=== PATIENT | female | born 1990 | race Caucasian/White ===

== ENCOUNTER 2024-09-14 02:43 | Emergency (ER) | payer MEDICAID ==
[~2024-09-14] VITALS: Ht 154.9 cm; Wt 65.9 kg
[~2024-09-14 02:43] MED LIST: ACE3T PO; IBUP-1454 PO; LACT10SO3 PO
[2024-09-14 02:57] VITALS: BP 115/72; PULSE 87; RESP 16; TEMP 98.4; O2SAT 99
--- NOTE | 2024-09-14 03:14 | ED.PDOC ---
General HPI Comments 34-year-old female came to ER due to pelvic pain. Patient states she was diagnosed with left ovarian cyst few months ago. Patient coming in complaining of left lower quadrant abdominal pain radiating to the back since yesterday, associated with nausea, dysuria, and constipation. Patient states she usually defecates once a week only Chief Complaint: Pelvic Pain Time Seen by MD: 03:11 Reviewed notes: Nurses Notes Allergies: Coded Allergies: NO KNOWN ALLERGIES (Unverified , 08/26/23) Home Meds Active Scripts Ibuprofen (Ibuprofen) 600 Mg Tab, 1 TAB PO Q6HP PRN, #30 TAB Prov:CATHIE HERNÁNDEZ PAC 08/26/23 Acetaminophen W/ Codeine (Tylenol W/Cod #3) 1 Tab Tb, 1 TAB PO Q6HP PRN, #15 TAB Prov:CATHIE HERNÁNDEZ PAC 08/26/23 Lactulose (Lactulose) 10 Gm/15 Ml Mayra, 10 GM PO Q6HP PRN, #150 ML Prov:CATHIE HERNÁNDEZ PAC 08/26/23 Information Source: Patient Mode of Arrival: Ambulatory Severity: Moderate Inability to void: Moderate Timing: Hours Duration: Since onset Prehospital treatment: None Onset: Spontaneous Symptoms: Dysuria History of: Other (Ovarian cyst) associated signs and symptoms: Abdominal Pain, Nausea, Dysuria Review of Systems REVIEW OF SYSTEMS: No fever, no chills, or fatigue HEENT: No sore throat, no earache, no congestion, no neck pain. Cardiac: No chest pain. No palpitations. Lungs: No shortness of breath, no cough. GI: No nausea, no vomiting, no diarrhea, no constipation, (+) LLQ abdominal pain : No dysuria, frequency, or urgency. No hematuria. Musculoskeletal: No joint pain , no joint swelling, no extremity edema. Skin: No rash, no itching. Neuro: No headache, no dizziness, no weakness Vital Signs Vital Signs Date Time Temp Pulse Resp B/P (MAP) Pulse Ox O2 Delivery O2 Flow Rate FiO2 09/14/24 02:57 98.4 87 16 115/72 (86) 99 98.4 Physical Exam General: Awake, alert and oriented. No acute distress. Skin: Skin in warm, dry and intact without rashes or lesions. HEENT: The head is normocephalic and atraumatic. Conjunctivae are clear without exudates or hemorrhage. Sclera is non-icteric. Neck: Normal range of motion. No JVD. Cardiac: Regular rate Respiratory: No signs of respiratory distress. No Stridor. Neurological: The patient is awake, alert and oriented to person, place, and time with normal speech. Speech is clear. There is no facial asymmetry. Psychiatric: Appropriate mood and affect. Good judgement and insight. Past Medical History PAST MEDICAL HISTORY: Denies Surgical History: Denies all surgeries [employer] History: Ovarian Cysts Family History Family History: Reviewed,noncontributory to illness, No family hx of Cancer, No family hx of DM, No family hx of Heart hazel, No family hx of HTN, No family hx ofKidney hazel, No family hx of Liver hazel, No family hx of Lung hazel, No family hx of Stroke Social History Smoker: Non-Smoker Alcohol: Denies ETOH Use Drugs: Denies Drug Use Lives In: Home Was a procedure done? Was a procedure done?: No Differential Diagnosis Kidney stone (Female): Musculoskeletal pain, Ovarian torsion, Pyelonephritis, Renal failure, Strain, Urinary obstruction, Urolithiasis, Other (Ovarian cyst) Urinary Problem (Female): Pyelonephritis, Urinary retention, Urolithiasis, UTI, Other (Constipation) X-Ray, Labs, Meds, VS Vital Signs Date Time Temp Pulse Resp B/P (MAP) Pulse Ox O2 Delivery O2 Flow Rate FiO2 09/14/24 02:57 98.4 87 16 115/72 (86) 99 98.4 Time of 1ST Reevaluation: 03:08 Reevaluation 1ST: Unchanged Patient Education/Counseling: Diagnosis, Treatment Family Education/Counseling: Need For Follow Up Departure 1 Departure Time of Disposition: 05:28 Impression: Primary Impression: Eloped from emergency department Disposition: 07 LEFT AWOL/ELOPED Condition: Stable Comments Patient was seen initially in triage, plan of care discussed with the patient, she agreed. Patient eloped from the emergency department prior to completing evaluation. Critical Care Note Critical Care Time?: No Stability Stability form required: No Heart Score Heart Score: Heart Score Response (Comments) Value History N/A 0 EKG N/A 0 Age N/A 0 Risk Factors N/A 0 Troponin N/A 0 Total 0 I personally scribed for KASHIF BUENO MD ([email or web address]) on 09/14/24 at 03:14. Electronically submitted by Ky Boothe ([email or web address]). KASHIF BUENO MD Sep 14, 2024 03:14
[2024-09-14] MEDS ORDERED: KETOROLAC TROMETH 30 MG/ML 1ML VIAL IM ONE (03:15)
== END 2024-09-14 05:34 | disposition left against medical advice (07) ==
LOC: ER 02:43
DX: R10.2 Pelvic and perineal pain (principal); R10.32 Left lower quadrant pain; R11.0 Nausea; R19.7 Diarrhea, unspecified; K59.00 Constipation, unspecified